=== PATIENT | female | born 1950 | race Hispanic/Latino ===

== ENCOUNTER 2017-08-08 04:45 | Emergency (ER) | payer MEDICARE, BC ==
[~2017-08-08] VITALS: Ht 160 cm; Wt 81.6 kg
[~2017-08-08 04:45] MED LIST: ATORVASTATIN CA10 MG PO; LEVOTHYROXINE150 MCG PO; METFORMIN HCL500 M3 PO; VITAMIN D350000 UNIT PO; Z GLUCOTROL; Z.0.CELEXA40 MG
--- OUTSIDE RECORDS SUMMARY | 2017-08-08 04:47 | XMS REPORT ---
Author Author [facility] Address Unknown Phone Unavailable Care Team Providers Care Bill Peddler Name Role Phone ROCAEL LOREDO Unavailable Unavailable GEETHA VELEZ Unavailable Unavailable Problems This patient has no known problems. Allergies, Adverse Reactions, Alerts This patient has no known allergies or adverse reactions. Medications This patient has no known medications. Results Test Description Test Time Test Comments Text Results Atomic Results Result Comments LOWER LEG LEFT [facility] [address] [address] Patient Name: BRIAN ROME MR #: [id number] : 1950 Age/Sex: 66/F Req #: [id number] Adm Physician: Ordered by: ROCAEL LOREDO MD Report #: [id number] Location: ER Room/Bed: Procedure: [id number] 0027 DX/LOWER LEG LEFT Exam Date: 04/21/17 Exam Time : 1640 REPORT STATUS: Signed Exam: Leg History: Pain Comparison: None. Findings: No fracture or malalignment. Degenerative arthrosis of the knee. No abnormal soft tissue calcification or soft tissue defect. Impression: No acute osseous abnormality Signed by: Dr. Giuseppe Carrasco M.D. on 04/21/2017 4:46 PM Dictated By: GIUSEPPE CARRASCO MD [id number] Transcribed By: TIMUR on 04/21/17 1646 COPY TO: ROCAEL LOREDO MD KNEE THREE VIEWS BILATERAL [facility] [address] [address] Patient Name: BRIAN ROME MR #: [id number] : 1950 Age/Sex: 66/F Req #: [id number] Adm Physician: Ordered by: ROCAEL LOREDO MD Report #: [id number] Location: ER Room/Bed: Procedure: [id number] DX/KNEE THREE VIEWS BILATERAL Exam Date: 04/02/17 Exam Time: 1899 REPORT STATUS: Signed ADDENDUM #1 Correction: In the impression, there is severe degenerative changes affect both knees. Signed by: Dr. Arnulfo Espinoza MD on 04/11/2017 11:17 AM ORIGINAL REPORT EXAMINATION: KNEE THREE VIEWS BILATERAL 04/02/2017 6:34 PM COMPARISON: None INDICATION: Fall DISCUSSION: 3 views of each knee (PA, lateral, and oblique) LEFT KNEE: No fracture or dislocation. Severe tricompartmental degenerative changes of the left knee with medial and patellofemoral joint space narrowing, subchondral sclerosis, and tricompartmental osteophytes Soft tissues are unremarkable RIGHT KNEE: No fracture or dislocation. Severe tricompartmental degenerative changes also affect the right knee. Soft tissues are unremarkable. IMPRESSION: No acute fracture or dislocation. Severe degenerative changes affect both kidneys. Jessica Azul MD Signed by: Dr. Jessica Azul M.D. on 8:32 PM Dictated By: JESSICA AZUL MD 16 Transcribed By: TIMUR on 04/02/172031 COPY TO: ROCAEL LOREDO MD RIBS BILAT W/CXR [address] [place] [address] Patient Name: BRIAN ROME MR #: [id number] : 1950 Age/Sex: 66/F Req #: [id number] Adm Physician: Ordered by: ROCAEL LOREDO MD Report #: [id number] Location: ER Room/Bed: Procedure: [id number] 0076 DX/RIBS BILAT W/CXR Exam Date: 04/02/17 Exam Time: 1900 REPORT STATUS: Signed EXAMINATION: RIBS BILAT W/CXR 04/02 6:34 PM COMPARISON: None INDICATION: Fall DISCUSSION : 3 views of the bilateral ribs (AP and bilateral obliques) One additional PA view of the chest. Nondisplaced fracture of the right anterior second rib. Chronic appearing fracture deformity of the right posterior seventh rib. No acute displaced left rib fractures. Cervical fusion hardware is partially visualized. There are surgical clips in the left breast IMPRESSION: As above Jessica Azul MD Signed by: Dr. Jessica Azul M.D. on 04/02/2017 8:39 PM Dictated By: JESSICA AZUL MD 38 Transcribed By: TIMUR on 04/02/172038 COPY TO: ROCAEL LOREDO MD CT MAXIO FAC/PARANAS WO [address] [address] Patient Name: BRIAN ROME MR #: [id number] : 1950 Age/Sex: 66/F Req #: [id number] [facility] Physician: Ordered by: ROCAEL LOREDO MD Report #: [id number] Location: Room/Bed: Procedure: [id number] CT/CT MAXIO FAC/PARANAS WO Exam Date: 04/02/17 Exam Time: 1900 REPORT STATUS: Signed Examination: CT Face without Contrast History:Fall. Facial injury. Comparison studies: None Technique: Axial images were obtained through the maxillofacial region. Coronal and sagittal reconstructions obtained from the axial data. Intravenous contrast: None Findings: Soft tissues: No abnormalities. Bones: No fractures or bony abnormalities. Orbits: Globes: Intact Extra or intraconal abnormalities: None. Paranasal sinuses: Mild, nonspecific inflammatory mucosal thickening of the left maxillary sinus. Nasal cavity: Mildly narrowed with mild deviation of the nasal septum to the left. Additional finding: Partially visualized prior anterior cervical fusion at C5. IMPRESSION: 1. No acute facial abnormality. 2. Partially visualized anterior cervical fusion at C5. Signed by: Dr. Andre Rose M.D. on 04/02/2017 7:52 PM Dictated By: ANDRE ALEGRIA MD 51 Transcribed By: TIMUR on 04/02/171951 COPY TO: ROCAEL LOREDO MD
[2017-08-08] MEDS ORDERED: LIDOCAINE HCL 1% LOCAL INJ 20 ML VIAL INJ ONE (05:15)
== END 2017-08-08 08:09 | disposition home or self-care (01) ==
LOC: ER 04:45
DX: S01.511A Laceration without foreign body of lip, initial encounter (principal); W06.XXXA Fall from bed, initial encounter; Y93.84 Activity, sleeping; Y92.003 Bedroom of unspecified non-institutional (private) residence as the place of occurrence of the external cause
CPT/HCPCS: 12011; 99283; J2001

== ENCOUNTER 2018-10-18 17:07 | Emergency (ER) | payer BC, MEDICARE ==
[~2018-10-18] VITALS: Ht 160 cm; Wt 81.6 kg
--- OUTSIDE RECORDS SUMMARY | 2018-10-18 17:10 | XMS REPORT | CCD ---
Author Author Auto Generated Organization [facility] [place] Address Unknown Phone Unavailable Care Team Providers Care Reverser Name Role Phone Sulaiman Bashir CP Allergies, Adverse Reactions, Alerts Substance Reaction Status Contrast Dye Active lactose intolerance Active
--- OUTSIDE RECORDS SUMMARY | 2018-10-18 17:10 | XMS REPORT | Summary of Care ---
Author Author [facility] Outpatient Imaging [facility]patient [facility] [place] Address Unknown Phone Unavailable Encounter HQ Encntr_alias(FIN) [id number] Date(s): 11/15/17 - 11/15/17 [facility] Outpatient Imaging [place] [address] [place] [phone] Discharge Disposition: Home or Self Care Attending Physician: Yang Tejada MD Vital Signs No data available for this section Problem List No data available for this section Allergies, Adverse Reactions, Alerts Substance Reaction Severity Status lactose intolerance Active Contrast Dye Active Medications No data available for this section Results No data available for this section Immunizations No data available for this section Procedures No data available for this section Social History No data available for this section Assessment and Plan No data available for this section
--- OUTSIDE RECORDS SUMMARY | 2018-10-18 17:10 | XMS REPORT | CCD ---
Author Author Auto Generated Organization [facility] Outpatient Imaging - [place] Address Unknown Phone Unavailable Care Team Providers Care Program Clerk Name Role Phone Tomi Salter CP Allergies, Adverse Reactions, Alerts Substance Reaction Status Contrast Dye Active lactose intolerance Active
--- OUTSIDE RECORDS SUMMARY | 2018-10-18 17:10 | XMS REPORT | Summary of Care ---
Author Author [facility] Address Unknown Phone Unavailable Care Team Providers Care Sox Analyst Name Role Phone Yang Tejada PCP Encounter HQ Encntr_oh(FIN) [id number] Date(s): 02/04/18 - 03/05/18 MARY LOU Ramirez Encounter Diagnosis Pain in right shoulder (Final) - 03/09/18 Primary osteoarthritis, right shoulder (Final) - Stiffness of right shoulder, not elsewhere classified (Final) - Discharge Disposition: Home or Self Care Attending Physician: Tomi Salter MD Vital Signs No data available for [...]
--- OUTSIDE RECORDS SUMMARY | 2018-10-18 17:10 | XMS REPORT | CCD ---
Author Author Auto Generated Organization [facility] Outpatient Imaging [place] Address Unknown Phone Unavailable Care Team Providers Care Athletic Scout Name Role Phone Matthew Ruffin CP Allergies, Adverse Reactions, Alerts Substance Reaction Status Contrast Dye Active lactose intolerance Active
--- OUTSIDE RECORDS SUMMARY | 2018-10-18 17:10 | XMS REPORT | Summary of Care ---
Author Author [facility] Outpatient Imaging [facility] Outpatient Imaging [place] Address Unknown Phone Unavailable Encounter HQ Encntr_alias(FIN) [id number] Date(s): 12/03/17 - 12/03/17 [facility] Outpatient Imaging [place] [address] [place] [phone] Discharge Disposition: Home or Self Care Attending [...]
--- OUTSIDE RECORDS SUMMARY | 2018-10-18 17:10 | XMS REPORT | CCD ---
Author Author Auto Generated Organization [facility] Outpatient Imaging [place] Address Unknown Phone Unavailable Care Team Providers Care Dial Screw Assembler Name Role Phone Matthew Ruffin CP Allergies, Adverse Reactions, Alerts Substance Reaction Status Contrast Dye Active lactose intolerance Active
--- OUTSIDE RECORDS SUMMARY | 2018-10-18 17:10 | XMS REPORT | Continuity of Care Document ---
Author Author Kennedy leach Organization Interface Address Unknown Phone Unavailable Problems Problem Status Onset Date Classification Date Reported Comments Source Pain in right shoulder 03/09/2018 09/22/2018 [facility] RIGHT SHOULDER SURGERY 456947 Active 01/25/2018 [facility] S46.011A - STRAIN OF MUSC/TEND THE ROTAT Active 11/30/2017 JOSHUA Leach M25.511 - PAIN IN RIGHT SHOULDER Active 11/15/2017 JOSHUA Leach RIGHT SHOULDER Active 10/04/2017 [facility] S[facility] DIARRHEA Active 04/23/2013 [facility] 719.42 - JOINT PAIN-UP/A Active 12/11/2012 JOSHUA Leach Primary osteoarthritis, right shoulder 09/22/2018 [facility] Stiffness of right shoulder, not elsewhere classified 09/22/2018 [facility] RIGHT ELBOW PAIN [facility] MENISCUS REPAIR POST OP 05/27 Active [facility] M[facility]ISC KNEE-CUR [facility] PRIMARY OSTEOARTHRITIS, RIGHT SHOULDER Active [facility] S[facility] PAIN IN RIGHT SHOULDER Active [facility] STIFFNESS OF RIGHT SHOULDER, NOT ELSEWHE Active [facility] S[facility] Medications Medication Details Route Status Patient Instructions Ordering Provider Order Date Source Atorvastatin Calcium 10 Mg Tablet Daily Active [facility] Cholecalciferol (Vitamin D3) (Vitamin D3) 50,000 Unit Capsule Every Sunday Active [facility] Levothyroxine Sodium 150 Mcg Tablet Daily Active [facility] Metformin Hcl (Metformin Hcl Er) 500 Mg Tab.er.24 Twice A Day Active [facility] Allergies, Adverse Reactions, Alerts Substance Category Reaction Severity Reaction type Status Date Reported Comments Source Iodinated Contrast- Oral and IV Dye MUST BE PRE-MEDICATED Unknown Allergy to Substance Active 04/21/2017 [facility] Contrast Dye Assertion Drug allergy Active [facility] lactose intolerance Assertion Propensity to adverse reactions to food Active [facility] Immunizations Immunization Date Given Site Status Last Updated Comments Source Results Order Name Results Value Reference Range Date Interpretation Comments Source Shoulder wo contrast MRI Shoulder wo contrast MRI EXAM: MR RIGHT SHOULDER WITHOUT CONTRAST DATE: 12/03/2017 11:57 AM INDICATION: - S46.011A Strain of muscle(s) and tendon(s) of the rotator cuff of right shoulder, initial encounter COMPARISON: Right shoulder radiograph 11/15/2017 TECHNIQUE: Axial, oblique coronal, and oblique sagittal MR images of the shoulder. IV contrast: None. FINDINGS: LONG BICIPITAL TENDON The biceps tendon is intact, and within the bicipital groove. There is severe tendinosis of the intra-articular segment of the biceps tendon. GLENOHUMERAL JOINT Labrum: Degenerative tearing of the superior and anterior labrum. No paralabral cyst. Cartilage: Cartilage fissuring and mild subjacent cystic change along the posterior rim of the glenoid. Chondromalacia is also present on the humeral head, and there is partial thickness loss of cartilage superiorly. Ligaments: No glenohumeral or other ligamentous abnormality Joint fluid: There is no glenohumeral joint effusion. ROTATOR CUFF AND ASSOCIATED STRUCTURES Rotator cuff: Severe supraspinatus tendinosis with articular sided fraying and a partial-thickness tear involving a 7 mm thickness of the anterior fibers. There is also thickening of signal in the infraspinatus tendon without tendon tear. Musculature: There is no muscular tear, contusion, or atrophy. Bursa: Unremarkable. Acromioclavicular joint: There are severe degenerative changes of the acromioclavicular joint including osteophytosis and subchondral cyst formation. A type 1 acromion configuration is noted. There is mild anterior downsloping of the acromion. OSSEOUS STRUCTURES No fracture. Visualized bone marrow signal is normal. OTHER FINDINGS: None. IMPRESSION: 1. Severe tendinosis with articular sided fraying of the supraspinatus. There is partial-thickness interstitial tear of a 7 mm segment of the anterior supraspinatus (series 301 image 9, series 401 image 29). 2. Less severe infraspinatus tendinosis without identified tear. 3. Severe tendinosis of the intra-articular biceps tendon. 4. Degenerative tearing of the superior and anterior labrum. 5. Mild chondromalacia along the posterior aspect of glenohumeral joint. Partial- thickness cartilage loss along the superior aspect of the humeral head. 6. Severe acromioclavicular osteoarthrosis. 12/03/2017 - - This report was dictated by a Ceo & Founder/Fellow. I have personally reviewed the images as well as the Resident's interpretation and agree with the findings. Read by: Jose Montgomery MD Resident: Jose Montgomery MD Dictated Date/time: 12/03/17 13:06 Electronically Signed by: Lionel Cardenas MD 12/04/17 09:46 FINAL REPORT CELESTINA Leach Shoulder series DX Shoulder series DX EXAM: XR SHOULDER 3 VIEWS DATE: 11/15/2017 12:35 PM CDT INDICATION: - M25.511 Pain in right shoulder COMPARISON: Right shoulder series 04/15/2010 TECHNIQUE: 3 views of the shoulder Laterality: Right FINDINGS: No acute fracture or malalignment is identified. No narrowing of subacromial space. Minimal osteophyte formation without sclerosis or cysts of the glenohumeral joint. No soft tissue abnormality is identified. IMPRESSION: Minimal osteoarthrosis of the glenohumeral joint. 11/15/2017 - - Read by: Lionel Cardenas MD Dictated Date/time: 11/15/17 15:59 Electronically Signed by: Lionel Cardenas MD 11/15/17 16:00 FINAL REPORT CELESTINA Leach Activated partial thromboplastin time (aPTT) in platelet poor plasma bycoagulation assay Activated partial thromboplastin time (aPTT) in platelet poor plasma bycoagulation assay 28.2 23.8 - 35.5 04/21/2017 [facility] Automated blood basophil count (count/volume) Automated blood basophil count (count/volume) 0.1 0.0 - 0.1 04/21/2017 [facility] Automated blood basophil count as percentage of total leukocytes Automated blood basophil count as percentage of total leukocytes 0.9 0.0 - 1.0 04/21/2017 [facility] Automated blood eosinophil count Automated blood eosinophil count 0.2 0.0 - 0.4 04/21/2017 [facility] Automated blood eosinophil count as percentage of total leukocytes Automated blood eosinophil count as percentage of total leukocytes 2.1 0.0 - 6.0 04/21/2017 [facility] Automated blood hematocrit (volume fraction) Automated blood hematocrit (volume fraction) 38.9 34.2 - 44.1 04/21/2017 [facility] Automated blood lymphocyte count as percentage ot total leukocytes Automated blood lymphocyte count as percentage ot total leukocytes 26.9 18.0 - 39.1 04/21/2017 [facility] Automated blood monocyte count as percentage of total leukocytes Automated blood monocyte count as percentage of total leukocytes 6.0 4.4 - 11.3 04/21/2017 [facility] Automated blood neutrophil count Automated blood neutrophil count 4.8 2.1 - 6.9 04/21/2017 [facility] Automated blood platelet count (count/volume) Automated blood platelet count (count/volume) 312 140 - 360 04/21/2017 [facility] Automated blood segmented neutrophil count as percentage of total leukocytes Automated blood segmented neutrophil count as percentage of total leukocytes 63.7 38.7 - 80.0 04/21/2017 [facility] Automated erythrocyte mean corpuscular hemoglobin (mass per erythrocyte) Automated erythrocyte mean corpuscular hemoglobin (mass per erythrocyte) 28.8 28 - 32 04/21/2017 [facility] Automated erythrocyte mean corpuscular hemoglobin concentration measurement (mass/volume) Automated erythrocyte mean corpuscular hemoglobin concentration measurement (mass/volume) 32.4 31 - 35 04/21/2017 [facility] Automated erythrocyte mean corpuscular volume Automated erythrocyte mean corpuscular volume 89.0 81 - 99 04/21/2017 [facility] Blood erythrocytes automated count (number/volume) Blood erythrocytes automated count (number/volume) 4.37 3.6 - 5.1 04/21/2017 [facility] Blood hemoglobin measurement (moles/volume) Blood hemoglobin measurement (moles/volume) 12.6 12.0 - 16.0 04/21/2017 [facility] Blood leukocytes automated count (number/volume) Blood leukocytes automated count (number/volume) 7.50 4.8 - 10.8 04/21/2017 [facility] Blood lymphocytes count (number/volume) Blood lymphocytes count (number/volume) 2.0 1.0 - 3.2 04/21/2017 [facility] Blood monocytes automated count (number/volume) Blood monocytes automated count (number/volume) 0.5 0.2 - 0.8 04/21/2017 [facility] Estimated glomerular filtration rate (GFR) determination Estimated glomerular filtration rate (GFR) determination null 60 04/21/2017 [facility] Fibrin D-dimer DDU measurement in platelet poor plasma (mass/volume) Fibrin D-dimer DDU measurement in platelet poor plasma (mass/volume) 0.51 0.00 - 0.45 04/21/2017 [facility] Glucose measurement Glucose measurement 84 74 - 118 04/21/2017 [facility] INR in Platelet poor plasma by Coagulation assay INR in Platelet poor plasma by Coagulation assay 0.89 04/21/2017 [facility] Prothrombin time (PT) in platelet poor plasma by coagulation assay Prothrombin time (PT) in platelet poor plasma by coagulation assay 12.5 11.9 - 14.5 04/21/2017 [facility] Serum or plasma anion gap Serum or plasma anion gap 14.7 8 - 16 04/21/2017 [facility] Serum or plasma calcium measurement (mass/volume) Serum or plasma calcium measurement (mass/volume) 9.0 8.4 - 10.2 04/21/2017 [facility] Serum or plasma carbon dioxide, total measurement (moles/volume) Serum or plasma carbon dioxide, total measurement (moles/volume) 24 22 - 29 04/21/2017 [facility] Serum or plasma chloride measurement (moles/volume) Serum or plasma chloride measurement (moles/volume) 104 98 - 107 04/21/2017 [facility] Serum or plasma creatinine measurement (mass/volume) Serum or plasma creatinine measurement (mass/volume) 0.76 0.57 - 1.11 04/21/2017 [facility] Serum or plasma potassium measurement (moles/volume) Serum or plasma potassium measurement (moles/volume) 3.7 3.5 - 5.1 04/21/2017 [facility] Serum or plasma sodium measurement (moles/volume) Serum or plasma sodium measurement (moles/volume) 139 136 - 145 04/21/2017 [facility] Serum or plasma urea nitrogen measurement (mass/volume) Serum or plasma urea nitrogen measurement (mass/volume) 16 7 - 26 04/21/2017 [facility] Serum or plasma urea nitrogen/creatinine mass ratio Serum or plasma urea nitrogen/creatinine mass ratio 21 6 - 25 04/21/2017 [facility] Red Cell Distribution Width 12.6 11.7 - 14.4 04/21/2017 [facility] IM GRANULOCYTES % 0.4 0.0 - 1.0 04/21/2017 [facility] Absolute Immature Granulocyte (auto 0.03 0 - 0.1 04/21/2017 [facility] Chest 2 views Chest 2 views EXAM: Chest 2 views DATE: Feb 11, 2013 12:06:40 PM. CLINICAL INDICATION: cough COMPARISON: 03/14/2007 FINDINGS: Plate and screw fixation seen in the lower cervical spine. Tortuous thoracic aorta with calcifications in the arch seen. Heart is mild to moderately enlarged. Both lungs are clear. No pleural effusions. Patient is mildly osteopenic. Mild multilevel degenerative changes seen in the spine. IMPRESSION: 1. Mild to moderate cardiomegaly. Tortuous thoracic aorta with calcifications in the arch. 2. No significant interval change otherwise. 02/11/2013 - - Read by: Violette Mcneill Dictated Date/time: 02/11/13 12:31 Electronically Signed by: Violette Mcneill MD 02/11/13 12:33 FINAL REPORT JOSHUA Leach Neck wo contrast MRA Neck wo contrast MRA EXAM: MRI OF THE BRAIN WITHOUT CONTRAST EXAM: MRA BRAIN EXAM: MRA NECK WITHOUT CONTRAST DATE: Dec 17, 2012 04:20:00 PM CLINICAL HISTORY: TIA TECHNIQUE: -A single DWI sequence of the brain was acquired in addition to the angiogram examinations -Three-dimensional time of flight MR angiography of intracranial vessels is performed, and maximum intensity projection reformatted images are presented in multiple three-dimensional rotational projections. -Two-dimensional time of flight MR angiography of extracranial arterial system was performed and reformatted images are presented in three-dimensional maximum intensity rotational projections. FINDINGS: BRAIN MRI: There is no restricted diffusion. The brain has normal configuration. The ventricles are normal in size. BRAIN MRA: Right vertebral artery is hypoplastic especially after the takeoff of the pica branch. The basilar artery, cerebellar branches, and posterior cerebral arteries are normal in appearance. The distal internal carotid arteries and the branches of anterior and middle cerebral arteries are normal. The posterior communicating artery is patent. 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 NECK MRA: The common and internal carotid arteries have normal caliber and contour. The vertebral arteries are normal in caliber and contour. IMPRESSION: 1. No acute infarct. 2. Normal MRA of the brain with anatomic variation. 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 3. Normal MRA of the neck. 12/17/2012 - - Read by: Ginger Pittman Dictated Date/time: 12/18/12 08:36 Electronically Signed by: Ginger Pittman MD 12/18/12 08:50 FINAL REPORT JOSHUA Leach Brain wo contrast MRA Brain wo contrast MRA EXAM: MRI OF THE BRAIN WITHOUT CONTRAST EXAM: MRA BRAIN EXAM: MRA NECK WITHOUT CONTRAST DATE: Dec 17, 2012 04:20:00 PM CLINICAL HISTORY: TIA TECHNIQUE: -A single DWI sequence of the brain was acquired in addition to the angiogram examinations -Three-dimensional time of flight MR angiography of intracranial vessels is performed, and maximum intensity projection reformatted images are presented in multiple three-dimensional rotational projections. -Two-dimensional time of flight MR angiography of extracranial arterial system was performed and reformatted images are presented in three-dimensional maximum intensity rotational projections. FINDINGS: BRAIN MRI: There is no restricted diffusion. The brain has normal configuration. The ventricles are normal in size. BRAIN MRA: Right vertebral artery is hypoplastic especially after the takeoff of the pica branch. The basilar artery, cerebellar branches, and posterior cerebral arteries are normal in appearance. The distal internal carotid arteries and the branches of anterior and middle cerebral arteries are normal. The posterior communicating artery is patent. 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 NECK MRA: The common and internal carotid arteries have normal caliber and contour. The vertebral arteries are normal in caliber and contour. IMPRESSION: 1. No acute infarct. 2. Normal MRA of the brain with anatomic variation. 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 3. Normal MRA of the neck. 12/17/2012 - - Read by: Ginger Pittman Dictated Date/time: 12/18/12 08:36 Electronically Signed by: Ginger Pittman MD 12/18/12 08:50 FINAL REPORT JOSHUA Leach Elbow 3 views Elbow 3 views EXAM: RIGHT ELBOW 3 VIEWS DATE: Dec 11, 2012 1042 hours INDICATION: 719.42 Pain in Joint Involving Upper Arm. COMPARISON: None available. TECHNIQUE: AP, lateral and oblique radiographs of the right elbow FINDINGS: No acute fracture. There is enthesopathy at the sublime tubercle. There is no elbow joint effusion. No soft tissue abnormality is identified. IMPRESSION: Enthesopathy at the sublime tubercle. No other bony abnormality. 12/11/2012 - - This report was dictated by a Ceo & Founder/Fellow. I have personally reviewed the images as well as the Resident's interpretation and agree with the findings. 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 Active [facility] [place] [id number] 719.42 - JOINT PAIN-UP/A [facility] 12/11/2012 Active JOSHUA Leach [id number] RIGHT ELBOW PAIN [facility] 12/30/2012 Active [facility] Pedro Pablo Departed Emergency Room [id number] GEETHA VELEZ MD 04/02/2017 04/03/2017 [facility] Departed Emergency Room [id number] ROCAEL LOREDO MD 04/21/2017 04/21/2017 [facility] Departed Emergency Room [id number] GEETHA VELEZ MD 08/08/2017 08/08/2017 [facility] [id number] Yang Tejada 11/15/2017 11/16/2017 JOSHUA Leach [facility] [id number] Tomi Salter 12/03/2017 12/04/2017 JOSHUA Leach [facility] Pedro Pablo OP Therapy Patients [id number] Tomi Salter 02/04/2018 03/06/2018 MARY LOU Ramirez [facility] Outpatient [id number] DIARRHEA NON PHYSICIAN Cancel [facility] Procedures Procedure Code Date Perfomer Comments Source CT maxillofacial area wo contrast [id number] 04/02/2017 FACUNDO [facility]
[2018-10-18] MEDS ORDERED: ASPIRIN 81 MG CHEW TAB PO ONE (18:00)
[2018-10-18 18:17] LABS: BASOPHILS # (AUTO) 0.1 (0.0-0.1); BASOPHILS % 0.8 % (0.0-1.0); EOSINOPHILS # (AUTO) 0.1 (0.0-0.4); EOSINOPHILS % 1.7 % (0.0-6.0); HEMATOCRIT 38.9 % (34.2-44.1); HEMOGLOBIN 12.8 g/dL (12.0-16.0); LYMPHOCYTES # (AUTO) 1.7 (1.0-3.2); LYMPHOCYTES % 23.4 % (18.0-39.1); MEAN CORPUSCULAR HEMOGLOBIN 29.1 pg (28-32); MEAN CORPUSCULAR HGB CONC 32.9 g/dL (31-35); MEAN CORPUSCULAR VOLUME 88.4 fL (81-99); MONOCYTES # (AUTO) 0.5 (0.2-0.8); MONOCYTES % 7.3 % (4.4-11.3); NEUTROPHILS # (AUTO) 4.9 (2.1-6.9); NEUTROPHILS % 66.4 % (38.7-80.0); PLATELET COUNT 276 x10e3/uL (140-360); RED CELL DISTRIBUTION WIDTH 12.4 % (11.7-14.4)
[2018-10-18 18:22] LABS: BILIRUBIN,URINE NEGATIVE (NEGATIVE); CLARITY,URINE SL CLOUDY (CLEAR); COLOR,URINE YELLOW (YELLOW); KETONES,URINE NEGATIVE (NEGATIVE); LEUKOCYTE ESTERASE ,URINE NEGATIVE (NEGATIVE); NITRITE,URINE NEGATIVE (NEGATIVE); PROTEIN,URINE DIPSTICK NEGATIVE (NEGATIVE); URINE UROBILINOGEN 0.2 mg/dL (0.2 - 1)
[2018-10-18 18:26] LABS: INR 0.87; PROTHROMBIN TIME 12.3 seconds (11.9-14.5)
--- NOTE | 2018-10-18 18:26 | Diagnostic Imaging Report ---
EXAMINATION: CHEST SINGLE (PORTABLE) INDICATION: Chest pain ^CHEST PAIN ^[id number] ^181 ^Y COMPARISON: None FINDINGS: TUBES and LINES: None. LUNGS: Lungs are well inflated. Lungs are clear. There is no evidence of pneumonia or pulmonary edema. PLEURA: No pleural effusion or pneumothorax. HEART AND MEDIASTINUM: The cardiomediastinal silhouette is unremarkable. BONES AND SOFT TISSUES: No acute osseous lesion. Soft tissues are unremarkable. UPPER ABDOMEN: No free air under the diaphragm. IMPRESSION: No acute thoracic abnormality. Signed by: Dr. Bulmaro Cruz M.D. on 10/18/2018 6:23 PM
[2018-10-18 18:27] LABS: PARTIAL THROMBOPLASTIN TIME 27.4 seconds (23.8-35.5)
[2018-10-18 18:37] LABS: ALANINE AMINOTRANSFERASE 18 IU/L (0-55); ALBUMIN 4.3 g/dL (3.5-5.0); ALBUMIN/GLOBULIN RATIO 1.7 (0.8-2.0); ALKALINE PHOSPHATASE 77 IU/L (40-150); ANION GAP 12.8 mmol/L (8-16); BLOOD UREA NITROGEN 19 mg/dL (7-26); BUN/CREATININE RATIO 23 (6-25); CALCIUM 9.6 mg/dL (8.4-10.2); CARBON DIOXIDE 25 mmol/L (22-29); CHLORIDE 103 mmol/L (98-107); CREATININE, SERUM 0.81 mg/dL (0.57-1.11); EST GLOMERULAR FILTRATION RATE > 60 ML/MIN (60-); GLUCOSE 101 mg/dL (74-118); POTASSIUM 3.8 mmol/L (3.5-5.1); SODIUM 137 mmol/L (136-145)
[2018-10-18 18:38] LABS: BACTERIA,URINE FEW /HPF; RBC,URINE 0-5 /HPF (0-5)
[2018-10-18 18:48] LABS: CREATINE KINASE 95 IU/L (29-168)
[2018-10-18 20:34] VITALS: BP 133/77
== END 2018-10-18 20:39 | disposition home or self-care (01) ==
LOC: ER 17:07
DX: M25.512 Pain in left shoulder (principal); M54.12 Radiculopathy, cervical region; I10 Essential (primary) hypertension; E03.9 Hypothyroidism, unspecified; E78.5 Hyperlipidemia, unspecified; F32.9 Major depressive disorder, single episode, unspecified; Z85.3 Personal history of malignant neoplasm of breast
CPT/HCPCS: 36415; 71045; 80053; 81001; 82550; 82553; 83880; 84484; 85025; 85610; 85730; 93005; 99284